=== PATIENT | male | born 1985 | race Two or more races ===

== ENCOUNTER 2023-11-13 14:05 | Emergency (ER) | payer BC, SELFPAY ==
[2023-11-13 14:11] VITALS: BP 108/85; PULSE 92; RESP 16; TEMP 36.6; O2SAT 97; BMI 25.1
--- NOTE | 2023-11-13 14:13 | XR_ITS ---
The [address] [address] Patient Name: SANCHEZ HAIDER MRN: [id number] date: 1985 Sex: M Assigned Patient Location: ER Current Patient Location: ED.MAIN Accession/Order Number: [id number] Exam Date: 11/13/2023 14:22 Report Date: 11/13/2023 14:47 At the request of: FAHEEM BECERRA Procedure: XR finger LT min 2V EXAM: XR finger LT min 2V HISTORY: crush injury COMPARISON: None TECHNIQUE: 3 views of the left little finger were obtained. FINDINGS: There is a comminuted fracture of the mid and distal portions of the distal phalanx of the little finger with oblique and longitudinal fracture lines identified. Slight separation of the fracture fragments. No evidence of dislocation. Mild to moderate soft tissue swelling at the mid and distal levels. XR/XR finger LT min 2V IMPRESSION: Left little finger study demonstrates fracture of the distal phalanx as described. Follow-up as needed. Electronically authenticated by: DELTA GARZA Date: 11/13/2023 14:47
--- NOTE | 2023-11-13 14:20 | ED_ITS ---
HPI - Extremity Injury (Upper) General Chief Complaint: Extremity Injury, Upper Stated Complaint: LT PINKY FINGER INJURY Time Seen by Provider: 11/13/23 14:13 Source: patient Mode of arrival: walk-in Limitations: no limitations History of Present Illness HPI narrative: Patient is a 38-year-old [id number] male who presents to the ER for evaluation of a crush injury to the distal tip of the left fifth finger 2 days ago. He states he smashed his fingertip between drywall and concrete. He has had bruising and swelling to the fat pad of the left fifth finger. No subungual hematoma. He reports pain with extension of the left fifth finger, decreased sensation. No other associated injuries. Related Data Home Medications ?Medication ?Instructions ?Recorded ?Confirmed varenicline 1 mg tablet (Chantix) 1 mg PO BID 11/13/23 11/13/23 Previous Rx's ?Medication ?Instructions ?Recorded hydrocodone 5 mg-acetaminophen 325 1 tab PO Q6H PRN pain 3 days #12 11/13/23 mg tablet tabs ketorolac 10 mg tablet 10 mg PO TID PRN pain #10 tabs 11/13/23 ondansetron 4 mg disintegrating 4 mg PO Q6H PRN nausea and 11/13/23 tablet vomiting #12 tabs Allergies Allergy/AdvReac Type Severity Reaction Status Date / Time No Known Drug Allergies Allergy Verified 11/13/23 14:14 Review of Systems ROS Constitutional Denies: fever or chills Ears, nose, mouth, and throat Denies: throat pain or nasal congestion Cardiovascular Denies: chest pain Respiratory Denies: shortness of breath or cough Gastrointestinal Denies: nausea or vomiting Musculoskeletal Reports: extremity pain and extremity swelling; Denies: back pain or neck pain Integumentary/Breast Denies: rash Neurological Denies: headache Exam Narrative Exam Narrative: Gen.: Awake, alert, in no distress Head: Normocephalic, atraumatic ENT: Moist mucous membranes Respiratory: No respiratory distress Extremities: Moves extremities equally, Left fifth finger with tenderness, swelling and ecchymosis noted to the fat pad of the fingertip. No subungual hematoma. No lacerations or bleeding. Psych: Normal mood and affect Neuro: No focal neuro deficit Skin: Warm, dry, intact Constitutional Vital Signs, click to edit/add: Last Vital Signs Temp 97.9 F 11/13/23 14:11 Pulse 92 H 11/13/23 14:11 Resp 16 11/13/23 14:11 BP 108/85 11/13/23 14:11 Pulse Ox 97 11/13/23 14:11 O2 Del Method Room Air 11/13/23 14:11 Course Vital Signs Vital signs: Vital Signs Temperature 97.9 F 11/13/23 14:11 Pulse Rate 92 H 11/13/23 14:11 Respiratory Rate 16 11/13/23 14:11 Blood Pressure 108/85 11/13/23 14:11 Pulse Oximetry 97 11/13/23 14:11 Oxygen Delivery Method Room Air 11/13/23 14:11 Temperature 97.9 F 11/13/23 14:11 Pulse Rate 92 H 11/13/23 14:11 Respiratory Rate 16 11/13/23 14:11 Blood Pressure 108/85 11/13/23 14:11 Pulse Oximetry 97 11/13/23 14:11 Oxygen Delivery Method Room Air 11/13/23 14:11 MDM - Extremity Injury (Upper) MDM Narrative Medical decision making narrative: X-rays show fracture of the distal phalanx of the left fifth finger with good alignment of the fracture fragments. Patient placed in a finger splint. He was strongly encouraged to keep the finger splinted, elevate and ice the finger. A short course of analgesics given for home with orthopedic referral. He is neurovascularly intact pre and post hardware application. Medical Records Attestation: I reviewed the patient's medical records. Imaging Data XR finger: Attestation: I have reviewed the pertinent imaging results. Discharge Plan Discharge Stand Alone Forms: Portal Instructions Chief Complaint: Extremity Injury, Upper Clinical Impression: Fracture of distal phalanx of finger of left hand, Crushing injury of finger of left hand Patient Disposition: Home, Self-Care Time of Disposition Decision: 14:35 Condition: Good Prescriptions / Home Meds: New hydrocodone-acetaminophen 5-325 mg tablet 1 tab PO Q6H PRN (Reason: pain) 3 Days Qty: 12 0RF Rx Instructions: DX: S62.601A ketorolac 10 mg tablet 10 mg PO TID PRN (Reason: pain) Qty: 10 0RF ondansetron 4 mg tablet,disintegrating 4 mg PO Q6H PRN (Reason: nausea and vomiting) Qty: 12 0RF No Action varenicline [Chantix] 1 mg tablet 1 mg PO BID Print Language: Slovenian Instructions: Finger Fracture (ED), Crush Injury (ED) Referrals: Physician,Non-Staff, MD [Primary Care Provider] - 1 week Venkat Cintron MD [Physician] - 11/19/23 9:00 am ()
[2023-11-13] MEDS: KETOROLAC TROMETHAMINE 10 MG TABLET PO (14:29)
== END 2023-11-13 14:49 | disposition home or self-care (01) ==
PROVIDERS: Emergency Provider Emergency Medicine
DX: S67.197A Crushing injury of left little finger, initial encounter (principal); S62.637A Displaced fracture of distal phalanx of left little finger, initial encounter for closed fracture; W23.0XXA Caught, crushed, jammed, or pinched between moving objects, initial encounter
CPT/HCPCS: 29130; 73140; 99284